=== PATIENT | female | born 1995 | race Caucasian/White ===

== ENCOUNTER 2024-03-18 09:46 | Emergency (ER) | payer OTHER ==
[2024-03-18] VITALS (14 sets, daily range): BP systolic 108–134; BP diastolic 62–89
[~2024-03-18] VITALS: Ht 175.3 cm; Wt 83.0 kg
[2024-03-18] MEDS ORDERED: KEPPRA XR500 MG PO (10:19)
[2024-03-18] MEDS ORDERED: SODIUM CHLORIDE 0.9% 1,000 ML IV ONE ×2 (10:20→10:29)
[2024-03-18] MEDS ORDERED: LORazepam 2 MG/ML IV ONE (10:20)
[2024-03-18] MEDS ORDERED: LORazepam 2 MG/ML ONE (10:29)
[2024-03-18 10:44] LABS: BASO% 0.3 % (0-3); EOS% 1.5 % (0-8); HEMATOCRIT 42.4 % (37.0-47.0); HEMOGLOBIN 14.3 g/dl (12.0-16.0); IMMATURE GRANULOCYTES 0.2 % (0.0-5.0); LYMPH% 26.1 % (15-41); MEAN CELL VOLUME 95.9 fL CALC (80.0-100.0); MEAN CORPUSCULAR HGB 32.4 pG CALC (26.0-32.0); MEAN CORPUSCULAR HGB CONC 33.7 g/dL CAL (32.0-36.0); MONO% 8.4 % (2-13); NEUT# 5.79 thou/uL (2.00-7.15); NEUT% 63.5 % (42-76); RED BLOOD COUNT 4.42 mill/uL (4.20-5.60); RED CELL DISTRI WIDTH 11.8 % (11.5-15.5)
[2024-03-18 10:53] LABS: ALBUMIN 4.6 g/dL (3.2-5.0); BILIRUBIN, TOTAL 0.9 mg/dL (0.02-1.3); CPK 146 u/l (30-135); CREATININE 0.9 mg/dL (0.5-1.0); ETHYL ALCOHOL 0 mg/dl (0-30); TOTAL PROTEIN 7.1 g/dL (6.3-8.2)
== END 2024-03-18 13:07 | disposition home or self-care (01) | DRG 948 ==
LOC: ED 09:46 → EDBD 10:23 → ED 13:07
PROVIDERS: Family Medicine
DX: R53.83 Other fatigue (principal); R56.9 Unspecified convulsions
CPT/HCPCS: J2060